=== PATIENT | male | born 1995 | race Two or more races ===

== ENCOUNTER 2023-05-09 23:14 | Emergency (ER) | payer SELFPAY ==
[~2023-05-09] VITALS: Ht 177.8 cm; Wt 91.0 kg
[2023-05-09 23:14] VITALS: BP 0/0; O2SAT 0
[2023-05-09 23:38] VITALS: PULSE 85; RESP 23
[2023-05-09] MEDS ORDERED: EPINEPHrine HCL 250 ML IV ONE (23:40)
[2023-05-09] MEDS ORDERED: EPINEPHrine HCL 1 MG/10 ML SYRG ONE (23:47)
[2023-05-09] MEDS ORDERED: SODIUM BICARB 8.4% 50Meq/50ml SYR Vial IV ONE (23:54)
[2023-05-10] MEDS ORDERED: EPINEPHrine HCL 1 MG/10 ML SYRG ONE ×3 (00:15→00:19)
== END 2023-05-10 00:20 | disposition home or self-care (01) ==
LOC: EEVIPCON 23:14 → ER 23:14 → EDBD 23:14 → ER 05-10 00:20
DX: I46.9 Cardiac arrest, cause unspecified (principal)
CPT/HCPCS: 32551; 36430; 86850; 86900; 86901; 86920; 92950; 99291; J0171; P9016